=== PATIENT | female | born 1995 | race Caucasian/White ===

== ENCOUNTER 2018-08-23 15:08 | Inpatient (IN) | payer MEDICAID, SELFPAY ==
--- NOTE | 2018-08-23 15:25 | HP.PCM_ITS ---
Problem List (1) Heroin abuse Status: Acute (2) Benzodiazepine abuse Status: Acute (3) Methamphetamine abuse Status: Acute History of Present Illness Date of Admission: 08/23/18 Chief Complaint: Heroin, benzo, meth, alcohol withdrawal The patient is a 22 year old F with no past medical history presents for [facility] for heroin, Xanax, alcohol, and meth use. She last used heroin around 5 AM this morning and overdosed twice and had to be given Narcan at [facility]. She was Xanax last night and had meth this morning around 4 AM. Also she was drinking yesterday and today. She states that her initial overdose was an attempted suicide, because she was in an argument with her boyfriend. Her second overdose today was accidental. She has no medical history or surgical history and is very resistant to taking Subutex because she thinks she will be able to do it on her own. She states that she is here because she knows she needs to get help and she understands that if she were to leave that she could possibly overdose with. Lethal consequences Past Medical History Home Medications: Ambulatory Orders Medication Instructions Recorded NK 08/23/18 Surgical History: no surgical history Smoking Status: Current every day smoker Tobacco Use: Cigarettes Alcohol: Heavy Drugs: Heroin, - - Meth - *Family History Maternal History Items: No pertinent history Paternal History Items: No pertinent history Review of Systems Constitutional: Denies: Chills, Fever, Weight Change HEENT: Denies: Head Aches, Sinus Congestion, Sinus Drainage Cardiovascular: Denies: Chest Pain, Palpitations Respiratory: Denies: Cough, Shortness of breath at rest, Sputum production Gastrointestinal: Denies: Abdominal Pain, Nausea, Vomiting Genitourinary: Denies: Dysuria Musculoskeletal: Denies: Joint Pain, Joint Tenderness Skin: Denies: Rash, Wounds Neurological: Denies: Numbness, Tingling, Focal weakness Psychiatric: Reports: Suicidal Ideations. Denies: Anxiety, Depression, Homicidal Ideations Hematologic/ Lymphatic: Denies: Easy Bruising, Easy Bleeding VTE Information - Inpt Only VTE Present on Admission: No Patient Problems: Active and Suspected Problems Heroin abuse (Acute) Benzodiazepine abuse (Acute) Methamphetamine abuse (Acute) - Physical Exam General: Alert, Oriented x3, Cooperative, No apparent distress, - - She still appears to have some the effects of the drug she is taken in her system HEENT: Atraumatic, PERRLA, EOMI, Normocephalic Oral: Moist Mucosa Neck: Supple, No JVD Lungs: Clear to auscultation, Normal air movement, No rhonchi, No wheeze, No rales Cardiovascular: Regular rate, Regular Rhythm, Normal S1, Normal S2, No murmurs Abdomen: Soft, Non Tender, Non-Distended, No Hepato-splenomegaly Extremities: No edema, Capillary Refill Less than 3 Seconds Skin: No rashes, No breakdown Neurological: Neuro grossly intact, Sensory exam intact to light touch and pain Psych/Mental Status: Suicidal Assessment/Plan All Active Problems Heroin abuse (Acute) Benzodiazepine abuse (Acute) Methamphetamine abuse (Acute) 1. Heroin, meth, Xanax, alcohol withdrawal -We will proceed with [facility] protocol for withdrawal for all of these conditions -She is competent to leave AMA if that is what she chooses I advised her against this, but it does appear that there could be difficulty and continue with Subutex for the heroin. -She will be set up at a dual inpatient rehab on discharge. -We will consult behavioral health once she is stable from her alcohol withdrawal to be evaluated for her suicidal ideation, and will have a sitter 2. Tobacco abuse -Advised cessation -Provide a nicotine patch DVT: Ambulation Code Visit Inpatient E&M: 02376 Init Hosp L2
--- NOTE | 2018-08-23 16:16 | NURSING ---
spoke with pt. pt states that within the last 24hrs she has OD x2 at [facility] Pt states that the 1st OD she had was a suicide attempt but then was released went home and then inadvertently OD the second time - this time was not a suicide attempt. pt states that she does not feel suicide at this time and that she wants to get help.
[2018-08-23 16:29] VITALS: BMI 22.0
[2018-08-23 16:36] VITALS: BMI 22.0
--- NOTE | 2018-08-23 16:58 | NURSING ---
pt standing at window, mad bc belongings were taken away. states she needs a cigarette and that she is about to flip out and will need restrained. chr rn aware .
--- NOTE | 2018-08-23 16:59 | NURSING ---
pt talking on cell phone. lakisha will stay here one hour, then leave.
[2018-08-23 17:51] LABS: Internal QC Validated? YES +Cl - CLEAR BKGD; Pregnancy, Serum, hCG Quali. NEGATIVE Negative
[2018-08-23 18:03] VITALS: BP 112/69; PULSE 93; RESP 18; TEMP 36.7; O2SAT 100
[2018-08-23] MEDS: cloNIDine HCl 0.1 MG Tablet PO (18:08)
[2018-08-23] MEDS: Pramipexole Di-HCl 0.25 MG Tablet PO (18:08)
[2018-08-23] MEDS: Dicyclomine 10 MG Capsule 20 MG PO (18:08)
[2018-08-23] MEDS: chlordiazePOXIDE 25 MG Capsule PO ×2 (18:09→22:50)
[2018-08-23] MEDS: Methocarbamol 750 MG Tablet PO (18:09)
[2018-08-23] MEDS: hydrOXYzine PAM 25 MG Capsule 50 MG PO (18:09)
[2018-08-23 19:31] LABS: Amphetamine Urine VISTA POSITIVE (<1000 ng/mL); Barbiturate Urine VISTA NEGATIVE (< 200 ng/mL); Benzodiazepine Urine VISTA POSITIVE (< 200 ng/mL); Cocaine Urine VISTA NEGATIVE (< 300 ng/mL); Ecstacy Urine VISTA NEGATIVE (< 500 ng/mL); Methadone Urine VISTA NEGATIVE (< 300 ng/mL); PCP Urine VISTA NEGATIVE (< 25 ng/mL); THC Urine VISTA POSITIVE (< 50 ng/mL); Vista UDS pH Range 5
[2018-08-23 22:39] VITALS: BP 130/54; PULSE 81; RESP 18; TEMP 37.1
[2018-08-23 23:00] LABS: Bedside Glucose 153 mg/dL (70-110)
[2018-08-24 04:12] VITALS: BP 90/49; PULSE 76; RESP 16; TEMP 37
[2018-08-24] MEDS: chlordiazePOXIDE 25 MG Capsule PO ×3 (04:19→17:55)
[2018-08-24 08:26] LABS: Hematocrit 40.7 % (37-47); Hemoglobin 13.8 g/dl (12.0-15.0); Mean Corp Hgb Conc 33.9 g/gl (32-36); Mean Corpuscular Hgb 32.3 pg (27.0-32.0); Mean Corpuscular Volume 95.3 fL (81-99); Mean Platelet Vol. 9.8 fl (6.2-12.0); Platelet Count 218 K/mm3 (150-450); RBC Distribution Width SD 45.2 fl (35.1-43.9); Red Blood Count 4.27 M/mm3 (4.2-5.4); White Blood Count 9.4 K/mm3 (4.4-11.0)
[2018-08-24 08:28] LABS: Scan Indicated on CBC? Y/N NO
[2018-08-24 08:49] LABS: AST(SGOT) 25 U/L (15-37); Alanine Aminotransfer ALT/SGPT 33 U/L (13-56); Albumin, Serum 3.3 g/dL (3.2-5.0); Alkaline Phosphatase 85 U/L (45-117); Anion Gap 5 (5-15); BUN 10 mg/dL (7-18); BUN/Creat Ratio 11.8 RATIO (10-20); Calcium,Total 8.5 mg/dL (8.5-10.1); Chloride 106 mmol/L (98-107); Creatinine, Serum 0.84 mg/dL (0.55-1.02); EST Glomerular Filtration Rate 90 mL/min (>60); Est Glom Filt Rate - Afr Amer 109 mL/min (>60); Estimated Creatinine Clearance 87.64 ml/min; Globulin 3.2 g/dL (2.2-4.2); Glucose 113 mg/dL (74-106); Potassium 3.7 mmol/L (3.5-5.1); Protein, Total 6.5 g/dL (6.4-8.2); Sodium Level 138 mmol/L (136-145)
[2018-08-24 09:28] VITALS: BP 99/46; PULSE 104; RESP 18; TEMP 36.9
[2018-08-24] MEDS: Methocarbamol 750 MG Tablet PO (09:39)
[2018-08-24] MEDS: Thiamine Hydrochloride 100 MG Tablet PO (09:39)
[2018-08-24] MEDS: Folic Acid 1 MG Tablet PO (09:39)
[2018-08-24] MEDS: Multivitamins,Therapeutic Tablet 1 TABLET PO (09:40)
--- NOTE | 2018-08-24 11:15 | CASEMGMT ---
Social Work Note ROSY spoke with Physician. Physician states that once pt is medically cleared, she will need to be evaluated by crisis. Physician states maybe tomorrow she will be cleared to be seen by crisis. ROSY asked physician about pink slip for pt if she leaves AMA. Physician states that if pt tries to leave she will pink slip pt. Charge nurse updated. Plan: Once pt is medically cleared, she will need to be evaluated by crisis Radha Vyas GROUNDS PERSON, SUPPLY TECHNICIAN
--- NOTE | 2018-08-24 12:01 | NEWVISION ---
Patient is willing to go to inpatient hospitalization for dual diagnosis. [place] obtained release and voluntary form.
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
--- NOTE | 2018-08-24 14:04 | NEWVISION ---
Patient has been accepted at [facility] in [facility] for dual diagnosis inpatient. Nursing staff or [facility] staff to call on day of discharge for bed availability at [facility]. [facility] does not provide transportation. Patient will have to be transported by medicaid taxi.
[2018-08-24 17:53] VITALS: BP 105/60; PULSE 83; RESP 18; TEMP 36.8
[2018-08-24 22:00] VITALS: BP 119/66; PULSE 92; RESP 18; RESP 20; TEMP 36.1; O2SAT 99
[2018-08-25] MEDS: cloNIDine HCl 0.1 MG Tablet PO ×3 (00:18→20:46)
[2018-08-25] MEDS: hydrOXYzine PAM 25 MG Capsule 50 MG PO ×2 (00:18→16:41)
[2018-08-25] MEDS: Ibuprofen 600 MG Tablet PO (00:59)
[2018-08-25 01:11] LABS: Bedside Glucose 123 mg/dL (70-110)
[2018-08-25 02:00] VITALS: RESP 18
[2018-08-25] MEDS: chlordiazePOXIDE 25 MG Capsule PO ×3 (02:37→17:29)
[2018-08-25 05:06] LABS: HEPATITIS B SURFACE AG Negative (Negative); Hepatitis A AB, Total Negative (Negative); Hepatitis A IgM Antibody Negative (Negative); Hepatitis B Core AB IgM Negative (Negative); Hepatitis B Core Ab Total Negative (Negative); Hepatitis C Ab 0.1 s/co ratio (0.0-0.9)
[2018-08-25 06:00] VITALS: RESP 16
[2018-08-25 08:51] VITALS: BP 113/54; PULSE 85; RESP 16; TEMP 36.6; O2SAT 100
--- NOTE | 2018-08-25 10:30 | NURSING ---
Patient refusing medications.
--- NOTE | 2018-08-25 11:42 | NURSING ---
talked with Dr. Ni regarding plan of care, awaRe to call security if patient attempts to leave and she will be pink slipped. This nurse in to check on sitter/patient approx. 11:35 pt in bathroom. 11:40 this nurse into patient's room at pt's request. pt verbalized upset about having a sitter. pt agitated, restless, and using profanity. Attempted to explain for patients safety and concern had been brought up regarding possible recent suicide attempt. attempted to explain to patient that this is for her safety and benefit when the physician has determined that she is medically cleared a licensing worker will come to evaluate her, but until that occurs she must remain in her room and she will have a staff member sitting with her to monitor her safety. Again pt agitated and denies all suicide attempts. Pt states that she just wants to go smoke. discussed nicotine patch with patient, primary RN called to the room and again discussed situation and nicotine patch. Pt now agreeable to librium and nicotine patch. Sitter maintained.
--- NOTE | 2018-08-25 11:48 | NURSING ---
Discussed patient with Dr. Ni. aware pt medically cleared to be seen by crisis, requested this nurse notify crisis. Crisis notified and states will be there to see pt in approximately 1 hr. Primary RN informed and states will inform patient.
[2018-08-25 11:51] VITALS: BP 120/68; PULSE 86; RESP 18; TEMP 36.5
[2018-08-25 11:54] LABS: Hemoglobin A1c 5.2 % (4.2-6.3)
[2018-08-25] MEDS: Folic Acid 1 MG Tablet PO (11:54)
[2018-08-25] MEDS: Thiamine Hydrochloride 100 MG Tablet PO (11:54)
[2018-08-25] MEDS: Multivitamins,Therapeutic Tablet 1 TABLET PO (11:54)
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
--- NOTE | 2018-08-25 15:43 | NURSING ---
Nurse to nurse report called to SADIA Rangel @ [facility].
--- NOTE | 2018-08-25 16:30 | NURSING ---
Called to room by leslie @ bedside d/t patient increasing agitation/restlessness. Upon entering room, patient began speaking in a loud voice asking when she could leave. I explained the pink slip to the patient and this caused the patient to begin yelling and screaming at this RN and the sitter. Deescalation techniques were attempted over a 15minute period. I then chose to call the charge rn because she was continuing to escalate, yelling and calling people on her cellphone. Patient yelling profanities. Patient began threatening to leave and stating it was against her human rights to force her to stay. Again a pink slip explanation was provided to the patient. Ariella, plywood patcher, reinforced this information and the patient's agitation continued to worsen. At this time the charge rn left the room. (Please refer to her note and discussion with DOTTY Moyer) Patient agreeable to PRN medications but is not allowing for vital signs to be assessed. Patient requesting Subutex and Librium and nicotine gum. We notified Dr. Ni of the worsening agitation and an order for PRN PO ativan was also given to the patient. Leslie remains in room. This RN stationed and back nurses' station near room. Security now present on the floor, stationed near the patient's room.
[2018-08-25 16:35] VITALS: PULSE 95
[2018-08-25] MEDS: Methocarbamol 750 MG Tablet PO (16:41)
--- NOTE | 2018-08-25 16:46 | NURSING ---
called to pt's room by primary RN. Upon arrival pt noted to be verbal agitated, aware per primary RN pt was explained pink slip as she is stating that she will be leaving. This nurse reinforced pink slip in place after she talked with hoe worker, N[place] and Dr. Ni. Reinforced that patient may not leave the floor, and that for her safety it has been set up for her to go directly to a facility that can assist her in a dual capacity that will help with not only her withdraw but also any mental issues. Pt agreeable to take meds from primary RN but continues with agitation. Security and HRO Comfort rounded on unit updated on situation. Comfort HRO went in to talk with patient. Sitter maintained. HRO asking if we can contact Dr. Ni and see if she will come up and talk with pt as pt stating that a woman, ? cold storage worker, told her she would be getting discharge papers ready. contacted and informed of agitation and current situation. Dr. Ni called back stated when she saw patient earlier all she did was layla sheth at her, that there have been clear statements of suicide intentions, that if necessary pt to be put in four point restraints that she has been evaluated by crisis and pink slipped, to let HRO know this. Primary RN, security, and HRO informed.
[2018-08-25] MEDS: LORazepam 1 MG Tablet 2 MG PO (17:12)
[2018-08-25] MEDS: Buprenorphine HCl 2 MG TAB.SUBL SL (17:29)
[2018-08-25] MEDS: Nicotine Polacrilex 2 MG GUM PO ×2 (18:14→20:54)
--- NOTE | 2018-08-25 19:08 | NURSING ---
TALKED WITH [facility] THIS IS THE SECOND DELAY IN TRANSPORT FROM THEM. EXPLAIN TO THEM SHE HAD BEEN MEDICATED FOR TRANSPORT AND VERBALIZED FRUSTRATION IN DELAY IN TRANSPORT. AWARE PER AMBULANCE MALT HOUSE OPERATOR THEY SHOULD ARRIVE IN 90 MINUTES. AWARE PER AMMUNITION SUPERVISOR [facility] ARE STATING UNABLE TO TRANSPORT PATIENT. CHARGE NURSE ON NIGHTS WELL DR. DELGADO UPDATED. NEW ATIVAN ORDER OBTAINED.
--- NOTE | 2018-08-25 20:00 | NURSING ---
pt resting in bed. Sitter at bedside.
--- NOTE | 2018-08-25 22:50 | NURSING ---
Called [facility] and let them know she was on her way to their physicality.
[2018-08-26 13:29] LABS: Hep B Surface Antibodies Non Reactive (.)
== END 2018-08-25 22:10 | DRG 773 ==
PROVIDERS: Admitting Provider Family Medicine; Referring Provider Family Medicine; Visit Provider Internal Medicine
DX: F11.23 Opioid dependence with withdrawal (principal); F10.239 Alcohol dependence with withdrawal, unspecified; Y90.9 Presence of alcohol in blood, level not specified; F15.23 Other stimulant dependence with withdrawal; F19.939 Other psychoactive substance use, unspecified with withdrawal, unspecified; F17.210 Nicotine dependence, cigarettes, uncomplicated; R44.0 Auditory hallucinations; Z91.410 Personal history of adult physical and sexual abuse; F13.20 Sedative, hypnotic or anxiolytic dependence, uncomplicated; Z91.5 Personal history of self-harm; T50.902A Poisoning by unspecified drugs, medicaments and biological substances, intentional self-harm, initial encounter
CPT/HCPCS: 36415; 80053; 80307; 80320; 82962; 83036; 84703; 85027; 86704; 86705; 86706; 86708; 86709; 86803; 87340; 99406; G0480